=== PATIENT | male | born 1935 | race Caucasian/White ===

== ENCOUNTER 2020-02-27 23:24 | Emergency (ER) | payer MEDICAID ==
[~2020-02-27] VITALS: Ht 162.6 cm; Wt 75.0 kg
[2020-02-27] MEDS ORDERED: PANT40TA4 PO (23:34)
[2020-02-27] MEDS ORDERED: SITA1TAB6 MT (23:35)
[2020-02-27] MEDS ORDERED: TAMS-11 MT (23:36)
[2020-02-27] MEDS ORDERED: GABA-529 PO (23:37)
[2020-02-27] MEDS ORDERED: ASPI-1497 MT (23:39)
[2020-02-27] MEDS ORDERED: SIMV-46 MT (23:39)
[2020-02-28 01:57] LABS: HEMATOCRIT 24.9 % (42.0-52.0); HEMOGLOBIN 8.2 g/dL (14.0-18.0); MEAN CORPUSCULAR HEMOGLOBIN 31.1 pg (28.0-32.0); MEAN CORPUSCULAR VOLUME 94.4 fL (80.0-94.0); PLATELET 131 x1000/uL (130-400); RED BLOOD CELL COUNT 2.64 mill/uL (4.7-6.1)
[2020-02-28] MEDS ORDERED: HYDROCODONE/ACETAMINOPHEN 10/325MG TABLET PO ONE (02:00)
[2020-02-28 02:04] LABS: CHLORIDE 109 mEq/L (98-107)
[2020-02-28] MEDS ORDERED: IOHEXOL-300 100 ML BOTTLE ONE (03:53)
[2020-02-28] MEDS ORDERED: SODIUM CHLORIDE 0.9% 1,000 ML IV ONE (04:15)
[2020-02-28] MEDS ORDERED: IOHEXOL-350 100 ML BOTTLE ONE (05:12)
[2020-02-28 08:30] VITALS: BP 166/71
== END 2020-02-28 09:41 | disposition home or self-care (01) ==
LOC: ER 23:24
DX: M54.2 Cervicalgia (principal); I71.2 Thoracic aortic aneurysm, without rupture; I10 Essential (primary) hypertension; E11.9 Type 2 diabetes mellitus without complications; Z79.82 Long term (current) use of aspirin; Z85.46 Personal history of malignant neoplasm of prostate
CPT/HCPCS: 36415; 71275; 74174; 80053; 85027; 93005; 96360; 96361; 99285; J7030; Q9967